=== PATIENT | female | born 1960 | race Caucasian/White ===

== ENCOUNTER 2020-01-16 | Emergency (ER) | payer MEDICARE, MEDICAID ==
[~2020-01-16] MED LIST: ABILIFY5 MG PO; ADLT ASA LOW81 MG PO; ALBUTEROL S2.5 MG/.5 IN; ALBUTEROL SUL0.083 % IN; AMLODIPINE BESY10 MG PO; AMOXICILLIN500 MG PO; EFFER-K25 MEQ PO; EFFEXOR XR150 MG PO; ESCITALOPRAM OX20 MG PO; GABAPENTIN300 M2 PO; HYDROCHLOROT25 MG PO; KLOR-CON M2020 MEQ PO; LASIX 20 MG20 MG/TAB PO; LEXAPRO10 MG PO; LEXAPRO20 MG PO; LIPITOR10 MG OR; LIPITOR20 MG PO; LORAZEPAM0.5 MG PO; LORTAB 5/3255 MG PO; LOSARTAN POT50 MG PO; LUNESTA3 MG OR; MEDDOSEPAK PO; METFORMIN500 MG PO; METHOCARBAM500 MG PO; METOPROL TAR25 M1 PO; NEURONTIN100 MG PO; NITROQUICK0.4 MG SL; NORCO1 TA1 PO; NORCO1 TA2 PO; NORFLEX30 MG/ML OR; OXYBUTYNIN5 M1 PO; PREVACID30 M2 OR; PRILOSEC40 MG PO; PROMETHAZINE25 MG PO; PROVENTIL HFA IN; REMERON15 MG PO; REQUIP XL2 MG PO; RESTORIL30 MG PO; ROBAXIN-750750 MG PO; ROBAXIN250 MG PO; SYNTHROID50 MCG PO; TOPAMAX50 M1 PO; ULTRAM50 MG PO; VENLAFAXINE H37.5 MG PO; VITAMIN D31000 UNI1 PO; ZOLPIDEM5 M1 PO
[2020-01-16] MEDS ORDERED: LORTAB 5/3255 MG PO (14:45)
== END 2020-01-16 15:23 | disposition home or self-care (01) ==
PROC: 2W3DX1Z Immobilization of Left Lower Arm using Splint (ICD-10-PCS; principal; 2020-01-16)
DX: S52.502A Unspecified fracture of the lower end of left radius, initial encounter for closed fracture (principal); I10 Essential (primary) hypertension; J44.9 Chronic obstructive pulmonary disease, unspecified; F17.210 Nicotine dependence, cigarettes, uncomplicated; W01.0XXA Fall on same level from slipping, tripping and stumbling without subsequent striking against object, initial encounter; Y92.009 Unspecified place in unspecified non-institutional (private) residence as the place of occurrence of the external cause; Z79.84 Long term (current) use of oral hypoglycemic drugs

== ENCOUNTER 2021-07-02 17:31 | Emergency (ER) | payer MEDICARE, MEDICAID ==
[~2021-07-02] VITALS: Ht 162.6 cm; Wt 107.0 kg
[2021-07-02 20:20] VITALS: BP 147/69
== END 2021-07-02 20:35 | disposition home or self-care (01) ==
LOC: ED 17:31
DX: S80.01XA Contusion of right knee, initial encounter (principal); M79.671 Pain in right foot; I10 Essential (primary) hypertension; E11.9 Type 2 diabetes mellitus without complications; J44.9 Chronic obstructive pulmonary disease, unspecified; M79.7 Fibromyalgia; F17.210 Nicotine dependence, cigarettes, uncomplicated; W01.0XXA Fall on same level from slipping, tripping and stumbling without subsequent striking against object, initial encounter; Y92.009 Unspecified place in unspecified non-institutional (private) residence as the place of occurrence of the external cause; Z79.84 Long term (current) use of oral hypoglycemic drugs

== ENCOUNTER 2023-03-21 10:02 | Day surgery (SDC) | payer MEDICARE, MEDICAID ==
[~2023-03-21] VITALS: Ht 162.6 cm; Wt 93.4 kg
[~2023-03-21 10:02] MED LIST changes: +ALPRAZOLAM ER1 MG PO; +B12; +D3; +FOLIC ACID; +ONDANSETRON4 MG PO; +ROPINIROLE1 MG PO; +SPIRIVA HANDIH18 MCG; +TRELEGY ELLIPTA1 AE1 IN
[2023-03-21 14:05] VITALS: BP 136/76
== END 2023-03-21 13:46 | disposition home or self-care (01) ==
LOC: ORM 10:02
PROVIDERS: ATTEND Surgery
PROC: 0JH63WZ Insertion of Totally Implantable Vascular Access Device into Chest Subcutaneous Tissue and Fascia, Percutaneous Approach (ICD-10-PCS; principal; 2023-03-21)
PROC: 02HV33Z Insertion of Infusion Device into Superior Vena Cava, Percutaneous Approach (ICD-10-PCS; 2023-03-21)
DX: C34.92 Malignant neoplasm of unspecified part of left bronchus or lung (principal); E11.9 Type 2 diabetes mellitus without complications; F17.200 Nicotine dependence, unspecified, uncomplicated
CPT/HCPCS: J0690; S0077

== ENCOUNTER 2024-06-23 11:08 | Emergency (ER) | payer MEDICARE, MEDICAID ==
[2024-06-23] VITALS (16 sets, daily range): BP systolic 123–148; BP diastolic 70–111
[~2024-06-23] VITALS: Ht 162.6 cm; Wt 98.0 kg
[2024-06-23] MEDS ORDERED: ACETAMINOPHEN 500 MG TAB PO ONE (11:45)
== END 2024-06-23 15:10 | disposition home or self-care (01) ==
LOC: ED 11:08
DX: M79.671 Pain in right foot (principal); I10 Essential (primary) hypertension; E11.9 Type 2 diabetes mellitus without complications; J44.9 Chronic obstructive pulmonary disease, unspecified; F17.200 Nicotine dependence, unspecified, uncomplicated; Z79.84 Long term (current) use of oral hypoglycemic drugs